=== PATIENT | male | born 1980 | race Caucasian/White ===

== ENCOUNTER → 2022-03-29 15:16 | Outpatient (CLI) | payer OTHER, SELFPAY ==
--- NOTE | ~2022-03-29 | MR_ITS ---
EXAMINATION: MR shoulder LT wo con DATE: 03/29/2022 16:14 INDICATION: Left shoulder pain TECHNIQUE: Magnetic resonance imaging (MRI) of the left shoulder was performed without intravenous co ntrast. Sequences included axial PD-weighted FS FSE, coronal oblique PD-weighted FS FSE, coronal obli que T2-weighted FS FSE, sagittal PD-weighted FS FSE, and sagittal T1-weighted SE. COMPARISON: None. FINDINGS: Coracoacromial arch: The acromion undersurface is curved in morphology (type II). Small anterior subacromial spur at the a cromial insertion of the normal coracoacromial ligament. Moderate acromioclavicular osteoarthritis wi th small inferiorly directed osteophytes which remains separate from the underlying supraspinatus by a thin intervening fat plane. Rotator cuff: Mild supraspinatus and infraspinatus tendinopathy without discrete tear. The teres minor tendon is no rmal. Subscapularis tendon is normal. Normal rotator cuff muscle bulk and signal. Biceps tendon, glenoid labrum and glenohumeral cartilage: Long head of the biceps tendon is normal. Advanced osteoarthritis at the glenohumeral joint with full -thickness cartilage loss and remodeling, loss of bone stock and subarticular cystic changes along th e posterior half of the glenoid. Additional full-thickness cartilage loss with remodeling of the amado ex at the anterior two thirds of the humeral head. There are large marginal osteophytes about the hum eral head which extend across portions of the articular surface at the superior superomedial aspect o f the humeral head. Mild subarticular cystic change at the central aspect of the articular surface of the humeral head. There is a tear along the posterior glenoid labrum. Likely degeneration of the inf erior labrum which is essentially absent. Additional degeneration of the superior to anterosuperior g lenoid labrum which has been largely replaced by prominent marginal osteophytes. Fluid: Small glenohumeral joint effusion with synovitis at the axillary and posterior recess of the joint. N o loose osteochondral bodies. No abnormal fluid signal in the subacromial/subdeltoid bursa consistent suggesting bursitis. Bones: Mild posterior subluxation of the humeral head with respect to the glenoid resulting from the remodel ing of the articular surfaces. No fracture or pathologic marrow replacing process. IMPRESSION: 1. Advanced osteoarthritis at the left glenohumeral joint with diffuse labral tear/degeneration. 2. Mild supraspinatus and infraspinatus tendinopathy without discrete tear. 3. Moderate acromioclavicular osteoarthritis. Reviewed, dictated and finalized at location A. IMPRESSION: 1. Advanced osteoarthritis at the left glenohumeral joint with diffuse labral t ear/degeneration. 2. Mild supraspinatus and infraspinatus tendinopathy without discrete tear. 3. Moderate acromioclavicular osteoarthritis.
== END ==
PROVIDERS: PCP Internal Medicine; Visit Provider Physician Assistant
DX: M19.012 Primary osteoarthritis, left shoulder (principal); S43.432A Superior glenoid labrum lesion of left shoulder, initial encounter
CPT/HCPCS: 73221